=== PATIENT | female | born 1975 | race Caucasian/White ===

== ENCOUNTER 2023-03-22 14:25 | Emergency (ER) | payer MEDICAID ==
[~2023-03-22] VITALS: Ht 167.6 cm; Wt 102.1 kg
[2023-03-22 14:30] VITALS: BP_SYST 134; PULSE 88; RESP 22; TEMP 98.3; O2SAT 98
[2023-03-22] MEDS ORDERED: LORazepam 2 MG/ML VIAL IM ONE (14:45)
[2023-03-22] MEDS ORDERED: LORA-259 PO (15:50)
[2023-03-22 16:03] VITALS: BP_SYST 120; PULSE 78; RESP 18; TEMP 98; O2SAT 98
== END 2023-03-22 16:03 | disposition home or self-care (01) ==
LOC: SED 14:25
DX: F41.0 Panic disorder [episodic paroxysmal anxiety] (principal); I10 Essential (primary) hypertension; Z79.899 Other long term (current) drug therapy
CPT/HCPCS: 99283; 96372; J2060